=== PATIENT | female | born 1950 | race Two or more races ===

== ENCOUNTER 2021-02-21 09:17 | Inpatient (IN) | payer OTHER, MEDICAID ==
[~2021-02-21] VITALS: Ht 157.5 cm; Wt 79.4 kg
[2021-02-21] MEDS ORDERED: ASPirin 81 mg TAB PO ONE (09:45)
[2021-02-21 10:39] LABS: Basophils # (auto) 0 10 ^3/uL (0-0.2); Eosinophils # (auto) 0.2 10 ^3/uL (0-0.8); White Blood Cell 8.1 10^3/uL (4.4-10.8)
[2021-02-21 10:41] LABS: Basophils % (auto) 0.6 % (0.0-2.0); Hematocrit 31.4 % (36.0-46.0); Hemoglobin 10.4 g/dL (12.2-16.2); Lymphocytes % (auto) 24.8 % (10.0-50.0); Mean Corpuscular Hemoglobin 25.8 pg (28.0-32.0); Mean Corpuscular Hgb Conc. 33.1 g/dL (32.0-36.0); Mean Corpuscular Volume 77.8 fL (80.0-100.0); Monocytes # (auto) 0.6 10 ^3/uL (0-1.3); Monocytes % (auto) 7.8 % (0.0-12.0); Neutrophils # (auto) 5.2 10 ^3/uL (1.6-8.6); Neutrophils % (auto) 63.8 % (37.0-80.0); Platelet Count (auto) 278 10^3/uL (140-450); Red Blood Cells 4.04 10^6/uL (4.0-5.20); Red Cell Distribution Width 16.2 % (11.8-14.3)
[2021-02-21 10:58] LABS: Albumin 3.4 g/dL (3.4-5.0); Anion Gap 8 (5-15); Blood Urea Nitrogen 23 mg/dL (7-18); Calcium 8.8 mg/dL (8.5-10.1); Carbon Dioxide 33 mmol/L (21-32); Chloride 98 mmol/L (98-107); Glucose 118 mg/dL (74-106); Magnesium 2.4 mg/dL (1.6-2.6); Sodium 139 mmol/L (136-145)
[2021-02-21 11:12] LABS: Alanine Aminotransferase 15 U/L (13-56); Alkaline Phosphatase 91 U/L (45-117); Aspartate Aminotransferase 8 U/L (15-37); BUN/Creatinine Ratio 20.7; Bilirubin, Total 0.4 mg/dL (0.2-1.0); GFR African American 63 mL/min; GFR Non-African American 52 mL/min; Total Protein 7.6 g/dL (6.4-8.2)
[2021-02-21 11:17] LABS: Potassium 2.6 mmol/L (3.5-5.1)
[2021-02-21 11:23] LABS: Urine Bacteria NONE SEEN /hpf (None Seen); Urine Blood Negative /uL (Negative); Urine Specific Gravity 1.012 (1.001-1.035); Urine WBC 1 /hpf (0 - 5)
[2021-02-21] MEDS ORDERED: ACETAMINOPHEN 500 MG TAB PO PRN (13:15)
[2021-02-21] MEDS ORDERED: hydrALAZINE HCL 20 MG/ML VL IV PRN (13:15)
[2021-02-21] MEDS ORDERED: MORPHINE SULF INJ 2 MG/ML SYRINGE 1ML IV PRN (13:15)
[2021-02-21] MEDS ORDERED: DEXTROSE (50%) 50ML SYRG IV PRN (13:15)
[2021-02-21] MEDS ORDERED: NITROGLYCERIN 0.4 MG SL TAB SL PRN (13:15)
[2021-02-21] MEDS ORDERED: ONDANSETRON HCL 4 MG/2 ML VIAL IV PRN (13:15)
[2021-02-21] MEDS ORDERED: DOCUSATE CALCIUM 240 MG CAP PO PRN (13:15)
[2021-02-21] MEDS ORDERED: LORazepam 0.5 MG TAB PO PRN (13:15)
[2021-02-21] MEDS: POTASSIUM CHL 20MEQ/100ML 100 ML IV SCH ×2 (13:22→17:31)
[2021-02-21] MEDS: SODIUM CHLORIDE 0.9% 1,000 ML IV SCH (14:07)
[2021-02-21] MEDS ORDERED: LEVO50TA7 PO (15:23)
[2021-02-21] MEDS ORDERED: HYDR-4798 PO (15:23)
[2021-02-21] MEDS ORDERED: PRAV20TA3 PO (15:23)
[2021-02-21] MEDS ORDERED: TRIATAB3 PO (15:25)
[2021-02-21 15:54] LABS: Magnesium 2.6 mg/dL (1.6-2.6); Phosphorus 3.8 mg/dL (2.5-4.90)
[2021-02-21] MEDS: InsuLIN REG 1unit/0.01ml Soln (100units/ml) SC SCH ×2 (16:00→20:00)
[2021-02-21] MEDS: ACCU-CHEK COMFORT CURVE STRIP VI SCH ×2 (16:15→20:00)
[2021-02-21 20:30] LABS: Potassium 2.9 mmol/L (3.5-5.1)
[2021-02-21 22:00] VITALS: BP 138/68
[2021-02-22] MEDS: SODIUM CHLORIDE 0.9% 1,000 ML IV SCH ×2 (00:04→16:29)
[2021-02-22] MEDS: MORPHINE SULF INJ 2 MG/ML SYRINGE 1ML IV PRN ×3 (00:27→11:16)
[2021-02-22] MEDS: ACCU-CHEK COMFORT CURVE STRIP VI SCH ×3 (04:00→09:08)
[2021-02-22] MEDS: InsuLIN REG 1unit/0.01ml Soln (100units/ml) SC SCH ×3 (04:00→08:00)
[2021-02-22 05:00] VITALS: BP 121/71
[2021-02-22 07:34] LABS: Basophils # (auto) 0 10 ^3/uL (0-0.2); Basophils % (auto) 0.4 % (0.0-2.0); Eosinophils # (auto) 0.2 10 ^3/uL (0-0.8); Hematocrit 29.6 % (36.0-46.0); Hemoglobin 9.8 g/dL (12.2-16.2); Lymphocytes # (auto) 2.2 10 ^3/uL (0.4-5.4); Lymphocytes % (auto) 29.2 % (10.0-50.0); Mean Corpuscular Hemoglobin 26.2 pg (28.0-32.0); Mean Corpuscular Hgb Conc. 33.1 g/dL (32.0-36.0); Mean Corpuscular Volume 79.2 fL (80.0-100.0); Monocytes # (auto) 0.6 10 ^3/uL (0-1.3); Monocytes % (auto) 7.9 % (0.0-12.0); Neutrophils # (auto) 4.6 10 ^3/uL (1.6-8.6); Neutrophils % (auto) 59.5 % (37.0-80.0); Platelet Count (auto) 261 10^3/uL (140-450); Red Blood Cells 3.74 10^6/uL (4.0-5.20); Red Cell Distribution Width 16.5 % (11.8-14.3); White Blood Cell 7.7 10^3/uL (4.4-10.8)
[2021-02-22 07:51] LABS: Albumin 3.1 g/dL (3.4-5.0); Anion Gap 8 (5-15); Blood Urea Nitrogen 21 mg/dL (7-18); Calcium 8.3 mg/dL (8.5-10.1); Carbon Dioxide 30 mmol/L (21-32); Chloride 103 mmol/L (98-107); Glucose 93 mg/dL (74-106); Sodium 141 mmol/L (136-145)
[2021-02-22 07:58] LABS: Alanine Aminotransferase 12 U/L (13-56); Alkaline Phosphatase 83 U/L (45-117); Aspartate Aminotransferase 10 U/L (15-37); BUN/Creatinine Ratio 22.3; Bilirubin, Total 0.4 mg/dL (0.2-1.0); GFR African American 76 mL/min; GFR Non-African American 63 mL/min; Total Protein 6.8 g/dL (6.4-8.2)
[2021-02-22 08:15] VITALS: BP 148/61
[2021-02-22 09:00] VITALS: BP 148/61
[2021-02-22] MEDS: ENOXAPARIN SOD 40 MG/0.4 ML SYRINGE SC SCH (09:08)
[2021-02-22] MEDS: PANTOPRAZOLE 40 MG TAB PO SCH (09:08)
[2021-02-22] MEDS ORDERED: POTASSIUM CHL 20 Meq TABLET PO ONE (10:45)
[2021-02-22 13:00] VITALS: BP 125/67
[2021-02-22 17:00] VITALS: BP 111/61
[2021-02-22 22:00] VITALS: BP 121/76
[2021-02-22] MEDS: POTASSIUM CHL 20 Meq TABLET PO SCH (22:29)
[2021-02-23] MEDS: MORPHINE SULF INJ 2 MG/ML SYRINGE 1ML IV PRN ×4 (01:56→20:30)
[2021-02-23 05:00] VITALS: BP 111/61
[2021-02-23] MEDS: SODIUM CHLORIDE 0.9% 1,000 ML IV SCH ×2 (05:15→18:14)
[2021-02-23 07:27] LABS: Anion Gap 7 (5-15); BUN/Creatinine Ratio 24.7; Blood Urea Nitrogen 23 mg/dL (7-18); Calcium 8.5 mg/dL (8.5-10.1); Carbon Dioxide 28 mmol/L (21-32); Chloride 107 mmol/L (98-107); GFR African American 77 mL/min; GFR Non-African American 64 mL/min; Glucose 103 mg/dL (74-106); Potassium 4.2 mmol/L (3.5-5.1); Sodium 142 mmol/L (136-145)
[2021-02-23 08:15] VITALS: BP 119/61
[2021-02-23 08:30] VITALS: BP 119/61
[2021-02-23] MEDS: PANTOPRAZOLE 40 MG TAB PO SCH (09:50)
[2021-02-23] MEDS: POTASSIUM CHL 20 Meq TABLET PO SCH ×2 (09:50→21:55)
[2021-02-23] MEDS: ENOXAPARIN SOD 40 MG/0.4 ML SYRINGE SC SCH (09:51)
[2021-02-23 13:30] VITALS: BP 114/66
[2021-02-23 16:34] VITALS: BP 123/67
[2021-02-23 22:28] VITALS: BP 116/68
[2021-02-24] MEDS: MORPHINE SULF INJ 2 MG/ML SYRINGE 1ML IV PRN ×2 (04:12→08:19)
[2021-02-24 05:07] VITALS: BP 119/61
[2021-02-24] MEDS: SODIUM CHLORIDE 0.9% 1,000 ML IV SCH (07:55)
[2021-02-24] MEDS: POTASSIUM CHL 20 Meq TABLET PO SCH (08:18)
[2021-02-24] MEDS: PANTOPRAZOLE 40 MG TAB PO SCH (08:19)
[2021-02-24] MEDS: ENOXAPARIN SOD 40 MG/0.4 ML SYRINGE SC SCH (08:19)
[2021-02-24 08:39] VITALS: BP 119/66
[2021-02-24 13:00] VITALS: BP 110/60
== END 2021-02-24 13:45 | disposition home or self-care (01) | DRG 641 ==
LOC: EDBD 09:17 → ER 09:17 → TELE 09:18 → TELE-CENTR 17:56
PROVIDERS: ADMIT Family Medicine; ATTEND Family Medicine
DX: E87.6 Hypokalemia (principal); R07.89 Other chest pain; D64.9 Anemia, unspecified; E78.00 Pure hypercholesterolemia, unspecified; E86.0 Dehydration; E78.5 Hyperlipidemia, unspecified; M54.18 Radiculopathy, sacral and sacrococcygeal region; G89.29 Other chronic pain; I12.9 Hypertensive chronic kidney disease with stage 1 through stage 4 chronic kidney disease, or unspecified chronic kidney disease; N18.30 Chronic kidney disease, stage 3 unspecified; Z96.642 Presence of left artificial hip joint; R73.9 Hyperglycemia, unspecified; Z90.49 Acquired absence of other specified parts of digestive tract; Z20.822 Contact with and (suspected) exposure to COVID-19
CPT/HCPCS: 36415; 71045; 71250; 80048; 80051; 80053; 81001; 82306; 82570; 82962; 83735; 83880; 84100; 84132; 84156; 84300; 84443; 84484; 85025; 86850; 86900; 86901; 87426; 93005; 96361; 96365; G0378; J1815; J3480